=== PATIENT | female | born 1990 | race Hispanic/Latino ===

== ENCOUNTER 2019-01-23 08:06 | Outpatient (CLI) | payer OTHER ==
--- NOTE | 2019-01-23 09:34 | ULT ---
Complete obstetrical ultrasound INDICATION: anatomy TECHNIQUE: Grayscale, M-mode Doppler and Doppler images were obtained of the abdomen and pelvis to ev aluate the patient's known . COMPARISON: None. FINDINGS: Number of gestations: Single. Presentation: Cephalic. Placental location: Anterior Previa: No evidence for previa. Cervical length: 4.4 cm ROBERT: 10.1 cm. heart rate: 139 bpm. Biparietal diameter: 4.5cm, 19 weeks 5 days, Not calculated.. Head circumference: 17.36 cm, 20 weeks 0 days, Not calculated. Abdominal circumference: 15.00 cm, 20 weeks and 2 days, Not calculated. Femoral length: 3.40 cmcm, 20 weeks and 5 days, Not calculated. Estimated weight: 349 g +/- 51g 0 lbs. 12 oz., 9th percentile SURVEY: head: Normal appearing. Cerebellum: Normal appearing. Cisterna magna: Normal appearing. Lateral ventricles: Normal appearing. 4 chamber heart: Not well seen. Stomach: Normal appearing. Kidneys: Normal appearing. Cord insertion: Normal appearing. Bladder: Normal appearing. Spine: Normal appearing. Lips and nose: Not well seen Extremities: Normal appearing. Three-vessel CORD: Normal appearing. The average gestational age by ultrasound is 20 weeks and 2 dayswith estimated due date of June. The estimated dates by clinical data is 21 weeks and 2 dayswith estimated due date of June 03 19. IMPRESSION: 1. Single live intrauterine gestation with size and dates as above. 2. The ROBERT is just above the 5th percentile for dates. The estimated weight is 9 percentile. Cl ose sonographic and clinical follow-up is recommended for oligohydramnios and small for gestational age markers. 3. Limitations due to the survey. The four-chamber heart and lips and nose were not well seen. A repeat examination in 1-2 weeks to complete survey is recommended.
== END 2019-01-23 08:07 | disposition home or self-care (01) ==
LOC: BICULT 08:06
PROVIDERS: ATTEND Family Medicine
DX: Z34.82 Encounter for supervision of other normal pregnancy, second trimester (principal); Z3A.20 20 weeks gestation of pregnancy
CPT/HCPCS: 76805

== ENCOUNTER 2019-06-10 19:15 | Inpatient (IN) | payer OTHER ==
[2019-06-10] MEDS ORDERED: Promethazine HCl 25 MG/ML VIAL IM PRN (22:58)
[2019-06-10] MEDS ORDERED: NS w/ Oxytocin 10 units 500 ML IV SCH ×2 (22:58)
[2019-06-10] MEDS ORDERED: Misoprostol 200 MCG TAB PR PRN (22:58)
[2019-06-10] MEDS ORDERED: Ibuprofen 800 MG TAB PO PRN (22:58)
[2019-06-10] MEDS ORDERED: Diphenoxylate HCl/Atropine Tablet PO PRN (22:58)
[2019-06-10] MEDS ORDERED: Carboprost 250 MCG/ML AMP IM PRN (22:58)
[2019-06-10] MEDS ORDERED: NS / Oxytocin 40 units/1000ml 1,000 ML IV PRN (22:58)
[2019-06-10] MEDS ORDERED: Lidocaine 1% (PF) 30 ML VIAL SC PRN (22:58)
[2019-06-10] MEDS ORDERED: HYDROcodone/Acetaminophen 5/325 mg Tablet PO PRN (22:58)
[2019-06-10] MEDS ORDERED: Butorphanol Tartrate 1 MG/ML VIAL SLOW IVP PRN (22:58)
[2019-06-10] MEDS ORDERED: Ondansetron PF 4 MG/2 ML Vial IVP PRN (22:58)
[2019-06-10] MEDS ORDERED: hydrALAZINE 20 MG/ML VIAL SLOW IVP PRN (22:58)
[2019-06-10] MEDS ORDERED: Methylergonovine 0.2 MG/ML VIAL IM PRN (22:58)
[2019-06-10 23:08] VITALS: BMI 31.8
[2019-06-11 00:36] LABS: Mean Corpuscular HGB CONC 35.8 g/dL (32.0-36.0); Mean Corpuscular Hemoglobin 30.5 pg (27.0-31.0); Mean Corpuscular Volume 85.3 fL (78.0-98.0); Mean Platelet Volume 8.6 fL (7.4-10.4); Platelet Count 236 thou/uL (130-400); RBC Distribution Width 13.6 % (11.5-14.5); Red Blood Cell (RBC) Count 3.92 mill/uL (4.20-5.40); White Blood Cell (WBC) Count 8.8 thou/uL (4.8-10.8)
[2019-06-11] MEDS: Misoprostol 100 MCG TAB PO SCH ×2 (00:37→04:45)
[2019-06-11] MEDS: Lactated Ringer's 1,000 ML IV SCH ×3 (00:39→12:34)
[2019-06-11 01:15] LABS: HBSAg Index 0.15 S/CO (0-0.99); Hep B Surf Ag Non-Reactive S/CO (NonReactive); Syphilis Antibody Nonreactive (Nonreactive); Syphilis Antibody Index 0.04 S/CO (<1.00 Non-Reactive)
[2019-06-11] MEDS ORDERED: Fentanyl 4 mcg/Bup 0.1% Cadd 100 ML ONE ×2 (10:07→16:18)
[2019-06-11] MEDS ORDERED: diphenhydrAMINE 50 MG/ML VIAL IVP PRN (11:08)
[2019-06-11] MEDS ORDERED: Lactated Ringer's 500 ML IV PRN (11:08)
[2019-06-11] MEDS ORDERED: Promethazine HCl 25 MG/ML VIAL IM PRN ×2 (11:08→21:41)
[2019-06-11] MEDS ORDERED: ePHEDrine/0.9% NaCl/PF SYRINGE 50 mg/10 ml SLOW IVP PRN (11:08)
[2019-06-11] MEDS ORDERED: Ondansetron PF 4 MG/2 ML Vial IVP PRN ×2 (11:08→21:41)
[2019-06-11] MEDS ORDERED: Acetaminophen 325 MG TAB PO PRN (11:08)
[2019-06-11] MEDS ORDERED: Naloxone HCl 0.4 mg/ml Vial IVP PRN ×2 (11:08)
[2019-06-11] MEDS ORDERED: Fentanyl 4 mcg/Bupivacaine 0.1% Cassette 100 ML EPIDURAL SCH (11:15)
[2019-06-11] MEDS ORDERED: Communication Order-Pharmacy FS PRN (11:15)
[2019-06-11] MEDS ORDERED: Oxytocin 10 UNITS/ML VIAL ONE (16:50)
[2019-06-11] MEDS ORDERED: NS / Oxytocin 40 units/1000ml 1,000 ML IV SCH (21:41)
[2019-06-11] MEDS ORDERED: Bisacodyl 10 MG SUPP PR PRN (21:41)
[2019-06-11] MEDS ORDERED: diphenhydrAMINE 25 MG CAP PO PRN (21:41)
[2019-06-11] MEDS ORDERED: Milk Of Magnesia 30 ML UDCUP PO PRN (21:41)
[2019-06-11] MEDS ORDERED: Benzocaine-Menthol 82.5 ML CAN TOP PRN (21:41)
[2019-06-11] MEDS ORDERED: hydrALAZINE 20 MG/ML VIAL SLOW IVP PRN (21:41)
[2019-06-11] MEDS ORDERED: HYDROcodone/Acetaminophen 5/325 mg Tablet PO PRN ×2 (21:41)
[2019-06-11] MEDS: Ibuprofen 800 MG TAB PO SCH (21:55)
[2019-06-11] MEDS: Docusate Calcium (SURFAK) 240 MG CAP PO SCH (22:11)
[2019-06-12 00:53] VITALS: BP 106/59; TEMP 98.3
[2019-06-12] MEDS ORDERED: Adacel (T-DAP) 0.5 ML SYRINGE IM ONE (09:00)
[2019-06-12 13:31] LABS: Hemoglobin 11.1 g/dL (12.0-16.0); Mean Corpuscular HGB CONC 33.2 g/dL (32.0-36.0); Mean Corpuscular Hemoglobin 29.4 pg (27.0-31.0); Mean Corpuscular Volume 88.5 fL (78.0-98.0); Mean Platelet Volume 8.9 fL (7.4-10.4); Platelet Count 218 thou/uL (130-400); RBC Distribution Width 14.1 % (11.5-14.5); Red Blood Cell (RBC) Count 3.78 mill/uL (4.20-5.40); White Blood Cell (WBC) Count 9.9 thou/uL (4.8-10.8)
[2019-06-12] MEDS: Ferrous Sulfate 325 MG TAB PO SCH (17:34)
[2019-06-12] MEDS: Ibuprofen 800 MG TAB PO SCH (17:34)
[2019-06-12] MEDS: Docusate Calcium (SURFAK) 240 MG CAP PO SCH ×2 (17:35→18:04)
== END 2019-06-12 18:51 | disposition home or self-care (01) | DRG 807 ==
LOC: L&D 22:24 → 3SW 06-11 21:13
PROVIDERS: ADMIT Family Medicine; ATTEND Family Medicine
PROC: 10E0XZZ Delivery of Products of Conception, External Approach (ICD-10-PCS; principal; 2019-06-11)
PROC: 10907ZC Drainage of Amniotic Fluid, Therapeutic from Products of Conception, Via Natural or Artificial Opening (ICD-10-PCS; 2019-06-11)
PROC: 3E0P7VZ Introduction of Hormone into Female Reproductive, Via Natural or Artificial Opening (ICD-10-PCS; 2019-06-11)
DX: O80 Encounter for full-term uncomplicated delivery (principal); Z37.0 Single live birth; Z3A.41 41 weeks gestation of pregnancy
CPT/HCPCS: 36415; 51702; 85027; 86780; 86850; 86900; 86901; 87340; J2210; J2405; J2590